=== PATIENT | female | born 1980 | race Two or more races ===

== ENCOUNTER 2020-05-25 13:28 | Emergency (ER) | payer OTHER ==
[~2020-05-25] VITALS: Ht 165.1 cm; Wt 84.8 kg
[2020-05-25] MEDS ORDERED: KETO10TA2 PO (16:15)
[2020-05-25] MEDS ORDERED: CLINDAMYCIN HC150 MG PO (16:15)
[2020-05-25] MEDS ORDERED: INTESTINEX680 M2 PO (16:15)
== END 2020-05-25 16:56 | disposition home or self-care (01) ==
LOC: ER 13:28
DX: K04.7 Periapical abscess without sinus (principal); K08.89 Other specified disorders of teeth and supporting structures